=== PATIENT | male | born 1965 | race African-American/Black ===

== ENCOUNTER 2016-09-30 10:05 | Outpatient (CLI) | payer OTHER ==
--- NOTE | 2016-10-01 10:00 | Ultrasound Report ---
BILATERAL GROIN ULTRASOUND: 09/30/16 CLINICAL: Bilateral inguinal swelling. FINDINGS: Ultrasound of each groin was performed without and with Valsalva. No mass, lymphadenopathy or hernia identified. IMPRESSION: Normal study.
== END 2016-09-30 10:06 | disposition home or self-care (01) ==
LOC: SPVIMAG 10:05
PROVIDERS: ATTEND Internal Medicine
DX: R19.09 Other intra-abdominal and pelvic swelling, mass and lump (principal)